=== PATIENT | female | born 1975 | race African-American/Black ===

== ENCOUNTER 2016-07-26 07:59 | Emergency (ER) | payer SELFPAY ==
[~2016-07-26] VITALS: Ht 144.8 cm; Wt 56.4 kg
[~2016-07-26 07:59] MED LIST: PRED20TA2 PO; [UNRECOGNIZED DRUG - OTHER] PO
[2016-07-26 08:01] VITALS: TEMP 36.4; Ht 144.8 cm; Wt 56.4 kg
[2016-07-26] MEDS ORDERED: IBUPROFEN 600 MG TAB PO STA (08:49)
--- NOTE | 2016-07-26 08:57 | EMERGENCY ROOM VISIT NOTE ---
ED Visit Note First contact with patient: 08:13 Chief Complaint: Finger Pain History of Present Illness: Patient is a 40-year-old female who presents to the emergency department today for evaluation of a ring that she is unable to move from the LEFT index finger. She reports she placed her in the finger last evening and had increasing swelling today. She reports that she had multiple attempts to remove the ring, but was unsuccessful. She rates her current discomfort as a 6/10. She denies any trauma to the affected digit. She denies any fevers, chills, nausea, vomiting. She does not utilize any blood thinners. She is ice the area for comfort. She is tried omes-vmf-ynkcuqv medications to this point. Medications: Reviewed and discussed with the patient. Allergies: Penicillins PMH: No pertinent past medical history. SHx: Patient is a 40-year-old female who lives locally. ROS: All pertinent positive and negative review of systems are appropriately documented in the History of Present Illness. Physical Exam: VITAL SIGNS - Vital signs and nursing notes were reviewed. GENERAL - 40-year-old female appearing her stated age who is in no acute distress. Communicates well with provider and answers questions appropriately. MUSCULOSKELETAL - moderate edema noted distally to a ring in place at the base of the LEFT index finger. Decreased range of motion secondary to edema and discomfort. Decreased capillary refill appreciated. NEUROLOGIC - Spinothalamic tract was found to be intact with ability to discriminate sharp versus dull sensation. No sensory defects of the dorsal column were appreciated utilizing light touch for evaluation. VASCULAR - Capillary refill was brisk. PROCEDURE: Verbal consent was obtained prior to performing the procedure. I did attempt to remove the ring using umbilical tape, but was unsuccessful. The patient was agreeable to removal via ring cutter. I personally remove the ring using a ring cutter with success. The patient tolerated procedure well. No cough occasions were met. Good capillary refill was appreciated after ring removal. Patient remained neurovascularly intact pre-and postprocedure. ED Course: Patient was seen and evaluated by myself. Ring was removed successfully. She is provided an ice pack for comfort as well as Motrin for her pain. She declines anything stronger at this time. She was educated on worrisome symptoms for return visit to the emergency department. Patient discharged home in good condition. In the evaluation and treatment of this patient, the following differential diagnoses were considered: Finger fracture, cellulitis, vascular occlusion, amongst others. Impression: Ring Removal to LEFT 2nd Digit Discharge Instructions: Ice the area for comfort. For pain control, you can use the following xsnb-ktp-lbvcooz medicines (if >12 yo): - Regular strength (325mg/tab) Tylenol (acetaminophen) 2 tabs every 4-6 hours as needed. Do not exceed 12 tablets in a 24 hour period. Avoid taking more than 4 grams (4000 mg) of Tylenol per day. This includes any other sources of acetaminophen you may take on a regular basis. - Regular strength (200 mg/tab) Advil (ibuprofen) 1-2 tabs every 4-6 hours as needed. Do not exceed a dose of 3200 mg per day. Return for any changing or worsening symptoms. Allergies Uncoded Allergies: PENICILLIN (Adverse Reaction, Unknown, BP bottoms out and she faints, ) Vital Signs Date Time Temp Pulse Resp B/P Pulse Ox O2 Delivery O2 Flow Rate FiO2 07/26/16 09:03 80 18 108/47 98 07/26/16 08:01 36.4 81 16 107/75 98 Room Air Medications Administered Medications (Trade) Dose Ordered Sig/Thuy Route Start Time Stop Time Status Last Admin Dose Admin Ibuprofen (Motrin Tab) 600 mg NOW STAT PO 07/26/16 08:49 07/26/16 08:50 DC 07/26/16 08:54 600 MG Departure Information Impression Primary Impression: Tight ring on finger Dispostion Home / Self-Care Condition GOOD Referrals No Doctor, Assigned (PCP) Patient Instructions My [facility] Additional Instructions Ice the area for comfort. For pain control, you can use the following gzby-xlb-ykanygk medicines (if >12 yo): - Regular strength (325mg/tab) Tylenol (acetaminophen) 2 tabs every 4-6 hours as needed. Do not exceed 12 tablets in a 24 hour period. Avoid taking more than 4 grams (4000 mg) of Tylenol per day. This includes any other sources of acetaminophen you may take on a regular basis. - Regular strength (200 mg/tab) Advil (ibuprofen) 1-2 tabs every 4-6 hours as needed. Do not exceed a dose of 3200 mg per day. Return for any changing or worsening symptoms.
[2016-07-26 09:03] VITALS: BP 108/47; PULSE 80; O2SAT 98
== END 2016-07-26 09:04 | disposition home or self-care (01) ==
LOC: EDBD → MERGE 08:03 → C.EDB 08:03
DX: S60.455A Superficial foreign body of left ring finger, initial encounter (principal); X58.XXXA Exposure to other specified factors, initial encounter; Y93.89 Activity, other specified; Y92.89 Other specified places as the place of occurrence of the external cause; Y99.8 Other external cause status

== ENCOUNTER 2017-10-05 14:23 | Emergency (ER) | payer SELFPAY ==
[~2017-10-05] VITALS: Ht 149.9 cm; Wt 59.0 kg
[~2017-10-05 14:23] MED LIST changes: -PRED20TA2 PO
[2017-10-05 14:31] VITALS: TEMP 36.7; Ht 149.9 cm; Wt 59.0 kg
[2017-10-05] MEDS ORDERED: SODIUM CHLORIDE 0.9% 1000ML 1,000 ML IV STA (14:55)
[2017-10-05] MEDS ORDERED: ONDANSETRON INJ 2 MG/ML 2 ML VIAL IV STA (14:55)
[2017-10-05 15:10] LABS: BASO % 0.3 %; BASO ABS # 0.02 K/uL (0-0.2); EOS ABS # 0.27 K/uL (0-0.5); HEMATOCRIT 40.4 % (37-47); HEMOGLOBIN 14.2 g/dL (12.0-16.0); IG# 0.01 K/uL (0.00-0.02); LYMPH % 35.2 %; LYMPH ABS # 2.38 K/uL (1.2-3.4); MEAN CELL VOLUME 92.9 fL (80-100); MEAN CORPUSCULAR HEMOGLOBIN 32.6 pg (25-34); MEAN CORPUSCULAR HGB CONC 35.1 g/dl (32-36); MEAN PLATELET VOLUME 10.5 fL (7.4-10.4); MONO % 5.6 %; MONO ABS # 0.38 K/uL (0.11-0.59); NEUT % 54.8 %; NEUT ABS # 3.71 K/uL (1.4-6.5); PLATELET COUNT 218 K/uL (130-400); RED CELL DISTRIBUTION WIDTH CV 12.4 % (11.5-14.5); RED CELL DISTRIBUTION WIDTH SD 42.2 fL (36.4-46.3); WHITE BLOOD COUNT 6.77 K/uL (4.8-10.8)
[2017-10-05 15:31] LABS: ALBUMIN 3.8 gm/dl (3.4-5.0); CALCIUM 8.9 mg/dl (8.5-10.1); CREATININE 1.06 mg/dl (0.60-1.20); POTASSIUM 3.5 mmol/L (3.5-5.1)
[2017-10-05 15:34] LABS: TOTAL PROTEIN 7.9 gm/dl (6.4-8.2)
--- NOTE | 2017-10-05 16:40 | DIAGNOSTIC IMAGING REPORT ---
<14 WKS SINGLE, TRANSVAGINAL CLINICAL HISTORY: 41 years-old Female presenting with + test, unsure of last menstrual period. TECHNIQUE: Real-time grayscale and M-mode Doppler ultrasound imaging of the pelvis was performed first using a transabdominal probe and subsequently transvaginal for better characterization. Color and spectral Doppler ultrasound imaging of the adnexa was also performed. COMPARISON: None. FINDINGS: Uterus: Gestational sac and yolk sac evident. pole visualized. The gestational sac measures 21 mm corresponding with an estimated gestational age of 6 weeks 5 days. Anteverted uterus with several well-defined round hypoechoic masses, probable fibroids. Normal amniotic fluid volume. Unable to accurately assess placental implantation secondary to early gestational age. Complex hypoechoic region adjacent to the gestational sac measuring 2.5 x 1.6 x 2.7 cm suggestive of a perigestational hemorrhage. This hemorrhage does not encompass more than 50% of the circumference of the gestational sac. Cervix long and closed. Right adnexum: Right ovary contains a corpus luteum. Right ovary measures 3.5 x 1.7 x 2.1 cm. Normal color Doppler flow and arterial and venous waveforms within the ovarian parenchyma. Left adnexum: Left ovary normal. Left ovary measures 2.9 x 1.4 x 1.9 cm. Normal color Doppler flow and arterial and venous waveforms within the ovarian parenchyma. 4.2 x 3.9 x 3.3 cm hypoechoic round mass in the left adnexa likely represents an exophytic fibroid. Other: No free fluid. IMPRESSION: 1. Gestational sac containing a yolk sac with an estimated gestational age of 6 weeks 5 days. pole not visualized possibly due to the early . Continued close clinical and imaging follow-up recommended with possible beta hCG trending. 2. Small to moderate perigestational hemorrhage. 3. Uterine fibroids. Electronically signed by: Bryan Choi M.D. 10/05/2017 4:38 PM Dictated Date/Time: 10/05/2017 4:31 PM
[2017-10-05 17:49] VITALS: BP 130/60; PULSE 72; O2SAT 98
--- NOTE | 2017-10-05 21:10 | EMERGENCY ROOM VISIT NOTE ---
History Report prepared by Danii: Radha Antonio Under the Supervision of: Dr. Armando Soto D.O. First contact with patient: 14:37 Chief Complaint: ABDOMINAL PAIN Stated Complaint: PAIN IN STOMACH Nursing Triage Summary: Pt c/o suprapubic pain and light vaginal bleeding x 3 months. Pt denies fever, chills, n/v. Pt states that last normal menstrual cycle was 3 months ago. History of Present Illness The patient is a 41 year old female who presents to the Emergency Room with complaints of intermittent vaginal bleeding for the past 3 months. Pain in the lower abdomen is intermittent but sharp when present. The blood has appeared dark. She is also having lower abdominal pain with worsens with walking. She notes that her last normal menstrual period was 3 months ago. She is having some sensitivity in her breasts. She denies any vomiting, cough, rhinorrhea, sore throat, or urinary symptoms. She denies any chance of . She is not on any medications. She has had an appendectomy. Her period had been regular previously. Source of History: patient Onset: 3 months ago Position: other (vaginal) Quality: other (bleeding) Timing: intermittent Associated Symptoms: + abdominal pain, No sorethroat, No cough, No vomiting , No urinary symptoms Review of Systems See HPI for pertinent positives & negatives. A total of 10 systems reviewed and were otherwise negative. Past Medical & Surgical Medical Problems: (1) Anaphylaxis (2) Kidney stone (3) Shellfish allergy Surgical Problems: (1) S/P appendectomy Family History No significant family history Social History Smoking Status: Never Smoker Occupation Status: unemployed Current/Historical Medications No Active Prescriptions or Reported Meds Allergies Coded Allergies: Shellfish (Verified Allergy, Severe, ANAPHYLAXIS, 02/14/16) Uncoded Allergies: PENICILLIN (Adverse Reaction, Unknown, BP bottoms out and she faints, ) Physical Exam Vital Signs Date Time Temp Pulse Resp B/P (MAP) Pulse Ox O2 Delivery O2 Flow Rate FiO2 10/05/17 17:49 72 20 130/60 98 10/05/17 17:06 85 20 132/64 97 Room Air 10/05/17 15:55 86 18 128/76 100 Room Air 10/05/17 14:31 36.7 88 20 136/83 100 Room Air Physical Exam GENERAL: Lying in bed, alert, well appearing, well nourished, no distress, non- toxic EYE EXAM: normal conjunctiva. OROPHARYNX: no exudate, no erythema, lips, buccal mucosa, and tongue normal and mucous membranes are moist NECK: supple, no nuchal rigidity, no adenopathy, non-tender LUNGS: Clear to auscultation. Normal chest wall mechanics HEART: no murmurs, S1 normal and S2 normal ABDOMEN: abdomen soft, tenderness above the pubic symphysis, normo-active bowel sounds, no masses, no rebound or guarding. SKIN: no rashes and no bruising, tattooed on abdomen. UPPER EXTREMITIES: upper extremities are grossly normal. LOWER EXTREMITIES: No pitting edema. NEURO EXAM: Normal sensorium, cranial nerves II-XII grossly intact, normal speech, no gross weakness of arms, no gross weakness of legs. Medical Decision & Procedures ER Provider Diagnostic Interpretation: Radiology results as stated below per my review and the radiologist's interpretation: <14 WKS SINGLE, TRANSVAGINAL CLINICAL HISTORY: 41 years-old Female presenting with + test, unsure of last menstrual period. TECHNIQUE: Real-time grayscale and M-mode Doppler ultrasound imaging of the pelvis was performed first using a transabdominal probe and subsequently transvaginal for better characterization. Color and spectral Doppler ultrasound imaging of the adnexa was also performed. COMPARISON: None. FINDINGS: Uterus: Gestational sac and yolk sac evident. pole visualized. The gestational sac measures 21 mm corresponding with an estimated gestational age of 6 weeks 5 days. Anteverted uterus with several well-defined round hypoechoic masses, probable fibroids. Normal amniotic fluid volume. Unable to accurately assess placental implantation secondary to early gestational age. Complex hypoechoic region adjacent to the gestational sac measuring 2.5 x 1.6 x 2.7 cm suggestive of a perigestational hemorrhage. This hemorrhage does not encompass more than 50% of the circumference of the gestational sac. Cervix long and closed. Right adnexum: Right ovary contains a corpus luteum. Right ovary measures 3.5 x 1.7 x 2.1 cm. Normal color Doppler flow and arterial and venous waveforms within the ovarian parenchyma. Left adnexum: Left ovary normal. Left ovary measures 2.9 x 1.4 x 1.9 cm. Normal color Doppler flow and arterial and venous waveforms within the ovarian parenchyma. 4.2 x 3.9 x 3.3 cm hypoechoic round mass in the left adnexa likely represents an exophytic fibroid. Other: No free fluid. IMPRESSION: 1. Gestational sac containing a yolk sac with an estimated gestational age of 6 weeks 5 days. pole not visualized possibly due to the early . Continued close clinical and imaging follow-up recommended with possible beta hCG trending. 2. Small to moderate perigestational hemorrhage. 3. Uterine fibroids. Electronically signed by: Bryan Choi M.D. 10/05/2017 4:38 PM Dictated Date/Time: 10/05/2017 4:31 PM Laboratory Results 10/05/17 14:30 Red Blood Count 4.35, Mean Corpuscular Volume 92.9, Mean Corpuscular Hemoglobin 32.6, Mean Corpuscular Hemoglobin Concent 35.1, Mean Platelet Volume 10.5, Neutrophils (%) (Auto) 54.8, Lymphocytes (%) (Auto) 35.2, Monocytes (%) (Auto) 5.6, Eosinophils (%) (Auto) 4.0, Basophils (%) (Auto) 0.3, Neutrophils # (Auto) 3.71, Lymphocytes # (Auto) 2.38, Monocytes # (Auto) 0.38, Eosinophils # (Auto) 0.27, Basophils # (Auto) 0.02 10/05/17 14:30 Test 10/05/17 14:30 10/05/17 14:50 White Blood Count 6.77 K/uL (4.8-10.8) Red Blood Count 4.35 M/uL (4.2-5.4) Hemoglobin 14.2 g/dL (12.0-16.0) Hematocrit 40.4 % (37-47) Mean Corpuscular Volume 92.9 fL (80-100) Mean Corpuscular Hemoglobin 32.6 pg (25-34) Mean Corpuscular Hemoglobin Concent 35.1 g/dl (32-36) Platelet Count 218 K/uL (130-400) Mean Platelet Volume 10.5 fL (7.4-10.4) Neutrophils (%) (Auto) 54.8 % Lymphocytes (%) (Auto) 35.2 % Monocytes (%) (Auto) 5.6 % Eosinophils (%) (Auto) 4.0 % Basophils (%) (Auto) 0.3 % Neutrophils # (Auto) 3.71 K/uL (1.4-6.5) Lymphocytes # (Auto) 2.38 K/uL (1.2-3.4) Monocytes # (Auto) 0.38 K/uL (0.11-0.59) Eosinophils # (Auto) 0.27 K/uL (0-0.5) Basophils # (Auto) 0.02 K/uL (0-0.2) RDW Standard Deviation 42.2 fL (36.4-46.3) RDW Coefficient of Variation 12.4 % (11.5-14.5) Immature Granulocyte % (Auto) 0.1 % Immature Granulocyte # (Auto) 0.01 K/uL (0.00-0.02) Anion Gap 3.0 mmol/L (3-11) Est Creatinine Clear Calc Drug Dose 54.6 ml/min Estimated GFR () 75.5 Estimated GFR (Non- 65.2 BUN/Creatinine Ratio 10.0 (10-20) Calcium Level 8.9 mg/dl (8.5-10.1) Total Bilirubin 1.0 mg/dl (0.2-1) Direct Bilirubin 0.2 mg/dl (0-0.2) Aspartate Amino Transf (AST/SGOT) 20 U/L (15-37) Alanine Aminotransferase (ALT/SGPT) 26 U/L (12-78) Alkaline Phosphatase 72 U/L (45-117) Total Protein 7.9 gm/dl (6.4-8.2) Albumin 3.8 gm/dl (3.4-5.0) Lipase 176 U/L (73-393) Human Chorionic Gonadotropin, Quant 29474 mIU/mL Urine Color YELLOW Urine Appearance CLEAR (CLEAR) Urine pH 7.5 (4.5-7.5) Urine Specific Bruno 1.010 (1.000-1.030) Urine Protein NEG (NEG) Urine Glucose (UA) NEG (NEG) Urine Ketones NEG (NEG) Urine Occult Blood NEG (NEG) Urine Nitrite NEG (NEG) Urine Bilirubin NEG (NEG) Urine Urobilinogen NEG (NEG) Urine Leukocyte Esterase NEG (NEG) Urine WBC (Auto) 0 /hpf (0-5) Urine RBC (Auto) 0-4 /hpf (0-4) Urine Hyaline Casts (Auto) 0 /lpf (0-5) Urine Epithelial Cells (Auto) 5-10 /lpf (0-5) Urine Bacteria (Auto) NEG (NEG) Urine Test POS (NEG) Laboratory results per my review. Medications Administered Medications (Trade) Dose Ordered Sig/Thuy Route Start Time Stop Time Status Last Admin Dose Admin Sodium Chloride 1,000 ml @ 999 mls/hr Q1H1M STAT IV 10/05/17 14:55 10/05/17 15:55 DC 10/05/17 15:01 999 MLS/HR ED Course ED COURSE: Vital signs were reviewed and showed normal vitals. The patients medical record was reviewed The above diagnostic studies were performed and reviewed. ED treatments and interventions as stated above. 1448: The patient was evaluated in room C10. A complete history and physical examination was performed. 1455: Sodium Chloride 1000 ml @ 999 mls/hr IV. 1706: I reevaluated the patient. I updated her on the results. 1715: I discussed the patient's case with Dr. Jiang, [facility]. She recommends follow up with [facility] as outpatient. 1738: Upon reevaluation, the patient is resting comfortably.I discussed my findings with the patient and she understands and agrees with the treatment plan. Based on the patients age, coexisting illnesses, exam and lab findings the decision to treat as an outpatient was made. The patient remained stable while under my care. The patient appeared well at the time of discharge. Medical Decision Differential diagnoses includes but is not limited to appendicitis, diverticulitis, small bowel obstruction, malignancy, hernia, urinary tract infection, torsion, and ectopic (if female), perforation, trauma, infectious. Patient is a 41-year-old female who presents to ER for lower abdominal pain with intermittent vaginal bleeding and breast tenderness. was positive. CBC along with BMP, LFTs, bilirubin and lipase is unremarkable. Beta hCG was 70,000. UA was negative. Imaging shows a gestational sac at 6 weeks 5 days. There was a natividad-gestational hemorrhage. She was O+. Discussed with OB. She will follow-up in the next 2 days. Vitals were stable. Hemoglobin was stable. Stressed the importance of following up with PCP as an outpatient to have a repeat beta-hCG and reevaluation. Discussed with Pt concerning signs and symptoms to watch out for. Pt was instructed to follow up with their PCP and discussed with the patient their option to return to the ED at anytime for persistent or worsening symptoms. The appropriate anticipatory guidance and out-patient management, including indications for return to the emergency department, were explained at length to the patient and understood. Medication Reconcilliation Current Medication List: was personally reviewed by me Blood Pressure Screening Patient's blood pressure: Normal blood pressure Blood pressure disposition: Did not require urgent referral Consults Time Called: 1713 Consulting Physician: Dr. Jiang [facility] Returned Call: 1715 I discussed the patient's case with her. She recommends follow up with [facility] as outpatient. Impression Primary Impression: Bleeding in early Additional Impression: Scribe Attestation The scribe's documentation has been prepared under my direction and personally reviewed by me in its entirety. I confirm that the note above accurately reflects all work, treatment, procedures, and medical decision making performed by me. Departure Information Dispostion Home / Self-Care Prescriptions No Active Prescriptions or Reported Meds Referrals No Doctor, Assigned (PCP) Forms Call Back Authorization, HOME CARE DOCUMENTATION FORM, IMPORTANT VISIT INFORMATION Patient Instructions Bleeding Early Preg, My [facility] Additional Instructions Please follow up with your primary care doctor with in the next 24 hours. Any worsening of your symptoms, please return to the ED immediately. This includes any fevers greater than 100.4, worsening pain, chest pain, shortness breath, persistent nausea, vomiting, unable to eat or drink, or any other concerning signs or symptoms from your standpoint. Please follow-up with your OB/gynecology doctor within the next 2 days to have a repeat beta-hCG and additional evaluation. Any increased vaginal bleeding i.e. going through more than 1 pad an hour, passing large clots should return immediately to the ER. Problem Qualifiers Additional Impression: Weeks of gestation: unspecified Qualified Codes: Z34.90 - Encounter for supervision of normal , unspecified, unspecified trimester
== END 2017-10-05 17:52 | disposition home or self-care (01) ==
LOC: C.EDB 14:26 → C.EDC 17:52
DX: O20.8 Other hemorrhage in early pregnancy (principal); Z3A.01 Less than 8 weeks gestation of pregnancy; Z87.442 Personal history of urinary calculi; Z90.89 Acquired absence of other organs; Z88.0 Allergy status to penicillin; Z91.013 Allergy to seafood